=== PATIENT | male | born 1930 | race Caucasian/White ===

== ENCOUNTER 2016-09-17 08:10 | Emergency (ER) | payer MEDICARE ==
--- NOTE | ~2016-09-17 | ER ---
PATIENT'S NAME: [facility] AGE: 86 Y [address] ROOM: [place] [address] LOCATION: [facility] ADMIT DATE: 09/17/2016 ER/Outpatient Report DISCHARGE DATE: FAMILY PHYSICIAN: Kristina Hinojosa MD ATTENDING PHYSICIAN: Yahaira Crane Time of Arrival: 0810 hours. Time Seen: 0832 hours. IDENTIFICATION: An 86-year-old male. CHIEF COMPLAINT: Right foot pain. HISTORY OF PRESENT ILLNESS: The patient is an 86-year-old male who complains to me of right foot pain. He complained to the nurse of left foot pain. He said it kind of moves around, it is a sharp "zinger," and then it resolves. This has been going on for the last couple of days, multiple times a day. No known injury. The pain is not in his heel. No numbness or tingling. No other problems or concerns. PAST MEDICAL HISTORY: ALLERGIES: PENICILLIN. CURRENT MEDICINES: He takes a blood pressure medicine, something for dementia, and a glaucoma medication, but they did not bring his medications with him. MEDICAL PROBLEMS: Hypertension, dyslipidemia, records reflect glucose intolerance, history of COPD, osteoarthritis, glaucoma, chronic kidney disease, and dementia. PRIOR SURGERIES: EGD and appendectomy. SOCIAL HISTORY: The patient [place] here in town. Tobacco use, denies. Alcohol use, 2 beers a day. Drug use, denies. REVIEW OF SYSTEMS: All systems reviewed and negative other than what is noted in the HPI. PATIENT'S NAME: [facility] AGE: 86 Y [address] ROOM: [place] [address] LOCATION: [facility] ADMIT DATE: 09/17/2016 ER/Outpatient Report DISCHARGE DATE: FAMILY PHYSICIAN: Kristina Hinojosa MD ATTENDING PHYSICIAN: Yahaira Crane PHYSICAL EXAMINATION: VITAL SIGNS: Weight 66 kilograms, blood pressure 173/90, pulse 82, respirations 20, temperature 96.9, sats 100% on room air. GENERAL: An 86-year-old male, in no acute distress. HEENT: Unremarkable. LUNGS: Clear to auscultation. HEART: Regular rate and rhythm. ABDOMEN: Soft, nondistended, nontender. SKIN: Blyn, warm, and dry. No lesions or rashes noted. NEURO: The patient is alert and oriented x4. Cranial nerves 2 through 12 grossly intact. Motor strength 5/5 throughout. Sensation is intact to light touch. No lower extremity edema. Aurora Coma Score is 15. EMERGENCY DEPARTMENT COURSE: The patient had no pain throughout his stay here in the emergency room. LABORATORY DATA AND X-RAYS: Sodium 144, potassium 4.6, chloride 117, CO2 of 22, BUN 38, creatinine 2.0 which is up from 2014 when it was 1.5, blood sugar 67. Liver enzymes normal. CRP less than 0.29. Hemoglobin 11.4, hematocrit 33.8, platelets 187, white count 6.7. Sedimentation rate 10. X-ray of his right foot, no fracture or dislocation, pending Radiology overread. The patient states that he changed shoes yesterday and the pain seems to have gotten a little bit better. IMPRESSION AND PLAN: Right foot pain. The patient has been pain-free throughout his stay here in the emergency room. He has good distal pulses. Sensation is intact. There is no known injury. He will be discharged home. Activity as tolerated. [facility]. Follow up sooner if any problems or concerns. The patient and his understand and agree, and all questions have been answered. YAHAIRA CRANE MD CAR/modl /[id number] d: 09/17/16 2245 t: 09/21/16 0911, OUTPATIENT REPORT
[~2016-09-17 08:10] MED LIST: ALPHAGAN 05 ML/1 BOT OPHTH; ARICEPT10 M1 PO; CLARITIN10 M3 PO; HYDROCHLOROTHIA25 MG PO; PRINIVIL20 MG PO; SODIUM BICARBO650 MG PO; SYMBICORT 16010.2 GM INH; TRUSOPT 2% OPTH10 ML OPHTH; TYLENOL325 MG PO; VITAMIN D2000 UNI1 PO; XALATAN2.5 ML OPHTH; ZOCOR80 M1 PO
[2016-09-17 08:54] LABS: BASOPHIL # 0.1 K/uL (0.0-0.2); BASOPHIL % 0.9 %; EOSINOPHIL # 0.4 K/uL (0.0-0.5); EOSINOPHIL % 5.4 %; HEMATOCRIT 33.8 % (33.0-50.0); HEMOGLOBIN 11.4 g/dL (11.0-16.0); IMMATURE GRANULOCYTE % 0.6 %; LYMPHOCYTE # 0.9 K/uL (0.8-4.0); LYMPHOCYTE % 13.7 %; MCH 33.5 pg (27.0-34.0); MCHC 33.7 gm/dL (32.0-36.5); MCV 99.4 fl (83.0-98.0); MONOCYTE # 0.7 K/uL (0.0-1.0); MONOCYTE % 10.4 %; MPV 9.4 fl (9.4-12.4); NEUTROPHIL # (ANC) 4.6 K/uL (1.4-9.0); NRBC % 0 /100WBC (0-0.00); PLATELET COUNT 187 K/uL (150-450); RDW-CV 12.1 % (11.9-14.6); WBC 6.7 K/uL (4.0-11.0)
[2016-09-17 09:15] LABS: ALBUMIN 3.2 gm/dL (3.5-5.0); ALK PHOS 77 IU/L (33-138); ALT 19 IU/L (12-78); AST 17 IU/L (10-40); BLOOD UREA NITROGEN 38 mg/dL (6-24); CO2 22 mMol/L (22-32); POTASSIUM 4.6 mMol/L (3.7-5.1); SODIUM 144 mMol/L (135-145); TOTAL BILIRUBIN 0.5 mg/dL (0.0-1.5); TOTAL PROTEIN 6.8 g/dL (6.0-8.4)
[2016-09-17 09:25] LABS: ANION GAP 9.6 (10.0-19.0); CHLORIDE 117 mMol/L (96-110)
== END 2016-09-17 10:16 | disposition disaster alternative care site (69) ==
LOC: GMED 08:10
PROVIDERS: Family Medicine
DX: M79.671 Pain in right foot (principal); I12.9 Hypertensive chronic kidney disease with stage 1 through stage 4 chronic kidney disease, or unspecified chronic kidney disease; N18.9 Chronic kidney disease, unspecified; F03.90 Unspecified dementia, unspecified severity, without behavioral disturbance, psychotic disturbance, mood disturbance, and anxiety; E78.5 Hyperlipidemia, unspecified; J44.9 Chronic obstructive pulmonary disease, unspecified; H40.9 Unspecified glaucoma; M19.90 Unspecified osteoarthritis, unspecified site; Z88.0 Allergy status to penicillin; Z79.899 Other long term (current) drug therapy; Z90.49 Acquired absence of other specified parts of digestive tract